=== PATIENT | male | born 1955 ===

== ENCOUNTER 2019-09-16 17:09 | Emergency (ER) | payer MEDICAID ==
--- NOTE | 2019-09-16 17:30 | EDM.PDOC ---
ED HPI GENERAL MEDICAL PROBLEM - General Stated Complaint: HIGH BP Time Seen by Provider: 09/16/19 17:25 Source of Information: Reports: Patient History Limitations: Reports: No Limitations - History of Present Illness INITIAL COMMENTS - FREE TEXT/NARRATIVE: 64-year-old male who reports that at approximately 1330 p.m. today, after coming back in from a walk in the yard while he was at intermediate, he developed left facial and left neck numbness that was shortly followed by left arm numbness and heaviness and then shortly after that he developed left leg heaviness and numbness. He also began to feel that he was having trouble making words and he noticed that his words seem to be somewhat slurred. The symptoms seemed to worsen over the next 15 minutes and they have been fairly stable since that time. He is incarcerated and he let the intermediate personnel no and he was transported to this facility ambulance. Upon arrival an EKG was performed and I was informed of the patient and a stroke activation was called. My initial evaluation of the patient showed him to have left facial droop, mild dysarthria, mild left arm weakness and mild left leg weakness. He was thinking normally and he had no vision problems. He was sent directly to CT scan for CT scan of his head. An EKG was performed and blood was drawn. The patient also tells me now that he has a headache which is frontally located and behind his eyes and he rates that as about 7-8/10. This headache has developed since the other symptoms developed. He had some mild nausea initially but that has resolved. He also tells me that on 09/12/2019, he had a verbal argument with someone and he was very upset and following this he developed a "sparkling and explosion of a headache all over his head"that was associated with left sided numbness and weakness and it lasted for approximately 30 minutes and then resolved completely. He did not tell anyone about this and he sought no medical help at that time. Later on that evening he was taking a shower and after the shower he had transient left-sided weakness that lasted for about 5 minutes and then resolved spontaneously and completely. Since then, he has had no further symptoms including no headache and no weakness until today at 3:30 PM. There are no other associated signs or symptoms. There are no other modifying factors. Onset: Today (3:30 PM) Duration: Other Location: Reports: Head, Upper Extremity, Left, Lower Extremity, Left Quality: Reports: Ache, Dull, Throbbing Severity: Moderate Improves with: Reports: None Worsens with: Reports: None Context: Reports: Other (As above) Associated Symptoms: Reports: Nausea/Vomiting, Weakness, Other (As above) Treatments [employer]: Reports: Other (see below) (Nothing) headache Pain Score (Numeric/FACES): 8 - Related Data Allergies Allergy/AdvReac Type Severity Reaction Status Date / Time No Known Allergies Allergy Verified 09/16/19 17:29 Home Meds: Home Meds NK [No Known Home Meds] 09/16/19 [History] Past Medical History - Past Health History Medical/Surgical History: Denies Medical/Surgical History (Patient denies any previous medical problems. He is on no medications. "I don't go see doctors". Surgical history as detailed below.) - Past Surgical History HEENT Surgical History: Reports: Other (See Below) (ORIF of facial fractures) Musculoskeletal Surgical History: Reports: ORIF (Of right clavicle, right ankle, left ankle) Other Surgical History Comment: Stellate ganglion removal Social & Family History - Tobacco Use Smoking Status *Q: Current Every Day Smoker (Has not smoked for the past week because he has been incarcerated.) - Alcohol Use Alcohol Use History: No Alcohol Use in Last Twelve Months: No Alcohol Use Comment: No alcohol use since 1995. 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 ED ROS GENERAL - Review of Systems Review Of Systems: See Below Constitutional: Reports: No Symptoms HEENT: Reports: Other (Facial numbness and tingling) Respiratory: Reports: No Symptoms Cardiovascular: Reports: Lightheadedness Endocrine: Reports: No Symptoms GI/Abdominal: Reports: Nausea : Reports: No Symptoms Musculoskeletal: Reports: No Symptoms Skin: Reports: No Symptoms Neurological: Reports: Dizziness, Headache, Numbness, Paresthesia, Tingling, Weakness, Other (Left sided symptoms as described above. Headache is frontal and retro-orbital orbital in location.) Hematologic/Lymphatic: Reports: No Symptoms Immunologic: Reports: No Symptoms ED EXAM, NEURO - Physical Exam Exam: See Below Exam Limited By: No Limitations General Appearance: Alert, WD/WN, Moderate Distress Eye Exam: Bilateral Eye: EOMI, Normal Inspection, PERRL Ears: Normal External Exam, Hearing Grossly Normal Nose: Normal Inspection, Normal Mucosa, No Blood Throat/Mouth: Normal Inspection, Normal Oropharynx, No Airway Compromise, Other (Poor dentition) Head Exam: Atraumatic, Normocephalic Neck: Normal Inspection, Supple, Non-Tender, Full Range of Motion Respiratory/Chest: No Respiratory Distress, Lungs Clear, Normal Breath Sounds, No Accessory Muscle Use, Chest Non-Tender Cardiovascular: Normal Peripheral Pulses, Regular Rate, Rhythm, No Murmur, JVD GI/Abdominal: Normal Bowel Sounds, Soft, Non-Tender, No Mass Neurological: Alert, Normal Mood/Affect, Normal Dorsiflexion, Normal Plantar Flexion, Oriented x 3, Other (Left facial droop over the lower half of the face. Dysarthria. Left arm weakness mild, there is mild drift. Left leg weakness, mild, there is mild drift.) Back Exam: Normal Inspection, Full Range of Motion Extremities: Normal Inspection, Normal Range of Motion, Non-Tender, No Pedal Edema, Normal Capillary Refill, Other (Radial, femoral and dorsalis pedis pulses are present and symmetric bilaterally.) Psychiatric: Normal Affect Skin Exam: Warm, Dry, Intact, Normal Color, No Rash EKG INTERPRETATION EKG Date: 09/16/19 Time: 17:19 Rhythm: NSR Rate (Beats/Min): 66 [place]: Normal P-Wave: Present QRS: Normal ST-T: Normal QT: Normal Comparison: NA - No Prior EKG (Normal EKG) Course - Vital Signs Last Recorded V/S: Last Vital Signs Temp 36.4 C 09/16/19 17:09 Pulse 69 09/16/19 17:09 Resp 21 H 09/16/19 17:09 BP 180/105 H 09/16/19 17:09 Pulse Ox 100 09/16/19 17:09 - Orders/Labs/Meds Orders: Active Orders 24 hr Category Date Time Status EKG Documentation Completion [RC] ASDIRECTED Care 09/16/19 17:49 Active Chest 1V Frontal [CR] Stat Exams 09/16/19 17:48 Taken Head wo Cont [CT] Stat Exams 09/16/19 17:30 Taken Sodium Chloride 0.9% [Normal Saline] 1,000 ml Med 09/16/19 18:00 Active IV ASDIRECTED Sodium Chloride 0.9% [Saline Flush] Med 09/16/19 17:48 Active 10 ml FLUSH ASDIRECTED PRN Peripheral IV Insertion Adult [OM.PC] Routine Oth 09/16/19 17:48 Ordered EKG 12 Lead [EK] Routine Ther 09/16/19 17:48 Ordered Medication Orders Sodium Chloride (Normal Saline) 1,000 mls @ 100 mls/hr IV ASDIRECTED ALEXANDRO Last Admin: 09/16/19 18:10 Dose: 100 mls/hr Documented by: KORI Sodium Chloride (Saline Flush) 10 ml FLUSH ASDIRECTED PRN PRN Reason: Keep Vein Open Last Admin: 09/16/19 18:11 Dose: 10 ml Documented by: KORI Labs: Laboratory Tests 09/16/19 09/16/19 09/16/19 Range/Units 17:45 17:45 17:45 WBC 10.0 (4.5-12.0) X10-3/uL RBC 4.78 (4.30-5.75) x10(6)uL Hgb 14.8 (13.5-17.8) g/dL Hct 45.4 (30.0-51.3) % MCV 95.0 (80-96) fL MCH 30.9 (27.7-33.6) pg MCHC 32.6 (32.2-35.4) g/dL RDW 12.7 (11.5-15.5) % Plt Count 378 H (125-369) X10(3)uL MPV 7.1 L (7.4-10.4) fL Neut % (Auto) 70.5 (46-82) % Lymph % (Auto) 19.7 (13-37) % [place] % (Auto) 7.6 (4-12) % Eos % (Auto) 1 (1.0-5.0) % Baso % (Auto) 1 (0-2) % Neut # (Auto) 7.0 (1.6-8.3) # Lymph # (Auto) 2.0 (0.6-5.0) # [place] # (Auto) 0.8 (0.0-1.3) # Eos # (Auto) 0.1 (0.0-0.8) # Baso # (Auto) 0.1 (0.0-0.2) # PT 9.8 (9.0-11.1) sec INR 0.90 L (1.00-1.24) APTT 23.5 L (24.4-33.2) SECONDS Sodium 138 (135-145) mmol/L Potassium 4.1 (3.5-5.3) mmol/L Chloride 105 (100-110) mmol/L Carbon Dioxide 28 (21-32) mmol/L BUN 12 (7-18) mg/dL Creatinine 1.1 (0.70-1.30) mg/dL Est Cr Clr Drug Dosing 69.02 mL/min Estimated GFR (MDRD) > 60 (>60) BUN/Creatinine Ratio 10.9 (9-20) Glucose 97 (80-116) mg/dL Calcium 8.3 L (8.6-10.2) mg/dL Magnesium 2.2 (1.8-2.5) mg/dL Total Bilirubin 0.3 (0.1-1.3) mg/dL AST 19 (5-25) IU/L ALT 36 (12-36) U/L Alkaline Phosphatase 78 (56-112) IU/L Total Protein 7.2 (6.0-8.0) g/dL Albumin 3.5 (3.2-4.6) g/dL Globulin 3.7 g/dL Albumin/Globulin Ratio 1.0 Urine Color (YELLOW) Urine Appearance (CLEAR) Urine pH (5.0-6.5) Ur Specific [place] (1.010-1.025) Urine Protein (NEGATIVE) mg/dL Urine Glucose (UA) (NORMAL) mg/dL Urine Ketones (NEGATIVE) mg/dL Urine Occult Blood (NEGATIVE) Urine Nitrite (NEGATIVE) Urine Bilirubin (NEGATIVE) Urine Urobilinogen (NEGATIVE) mg/dL Ur Leukocyte Esterase (NEGATIVE) Urine RBC (0-5) Urine WBC (0-5) Ur Squamous Epith Cells (NS,R,O) Urine Bacteria (NS) Urine Mucus (NS) 09/16/19 Range/Units 17:58 WBC (4.5-12.0) X10-3/uL RBC (4.30-5.75) x10(6)uL Hgb (13.5-17.8) g/dL Hct (30.0-51.3) % MCV (80-96) fL MCH (27.7-33.6) pg MCHC (32.2-35.4) g/dL RDW (11.5-15.5) % Plt Count (125-369) X10(3)uL MPV (7.4-10.4) fL Neut % (Auto) (46-82) % Lymph % (Auto) (13-37) % [place] % (Auto) (4-12) % Eos % (Auto) (1.0-5.0) % Baso % (Auto) (0-2) % Neut # (Auto) (1.6-8.3) # Lymph # (Auto) (0.6-5.0) # [place] # (Auto) (0.0-1.3) # Eos # (Auto) (0.0-0.8) # Baso # (Auto) (0.0-0.2) # PT (9.0-11.1) sec INR (1.00-1.24) APTT (24.4-33.2) SECONDS Sodium (135-145) mmol/L Potassium (3.5-5.3) mmol/L Chloride (100-110) mmol/L Carbon Dioxide (21-32) mmol/L BUN (7-18) mg/dL Creatinine (0.70-1.30) mg/dL Est Cr Clr Drug Dosing mL/min Estimated GFR (MDRD) (>60) BUN/Creatinine Ratio (9-20) Glucose (80-116) mg/dL Calcium (8.6-10.2) mg/dL Magnesium (1.8-2.5) mg/dL Total Bilirubin (0.1-1.3) mg/dL AST (5-25) IU/L ALT (12-36) U/L Alkaline Phosphatase (56-112) IU/L Total Protein (6.0-8.0) g/dL Albumin (3.2-4.6) g/dL Globulin g/dL Albumin/Globulin Ratio Urine Color Yellow (YELLOW) Urine Appearance Clear (CLEAR) Urine pH 5.0 (5.0-6.5) Ur Specific [place] 1.020 (1.010-1.025) Urine Protein Negative (NEGATIVE) mg/dL Urine Glucose (UA) Normal (NORMAL) mg/dL Urine Ketones Negative (NEGATIVE) mg/dL Urine Occult Blood Negative (NEGATIVE) Urine Nitrite Negative (NEGATIVE) Urine Bilirubin Negative (NEGATIVE) Urine Urobilinogen Normal (NEGATIVE) mg/dL Ur Leukocyte Esterase Negative (NEGATIVE) Urine RBC 0-5 (0-5) Urine WBC 0-5 (0-5) Ur Squamous Epith Cells Occasional (NS,R,O) Urine Bacteria Few H (NS) Urine Mucus Few H (NS) Meds: Medications Generic Name Dose Route Start Last Admin Trade Name Freq PRN Reason Stop Dose Admin Sodium Chloride 1,000 mls @ 100 mls/hr 09/16/19 18:00 09/16/19 18:10 Normal Saline IV 100 mls/hr ASDIRECTED ALEXANDRO Administration Sodium Chloride 10 ml 09/16/19 17:48 09/16/19 18:11 Saline Flush FLUSH 10 ml ASDIRECTED PRN Administration Keep Vein Open Discontinued Medications Generic Name Dose Route Start Last Admin Trade Name Freq PRN Reason Stop Dose Admin Alteplase, Recombinant 6.3 mg 09/16/19 18:27 Activase IVPUSH 09/16/19 18:28 .BOLUS ONE Alteplase, Recombinant 57.1 mg 0 mls @ 0 mls/hr 09/16/19 18:53 / Premix IV 09/16/19 18:54 .INFUSION ONE - Radiology Interpretation Free Text/Narrative:: Portable chest x-ray shows hyperinflation but otherwise was normal. CT scan of head without contrast was read as no acute intracranial abnormality by the radiologist. - Re-Assessments/Exams Free Text/Narrative Re-Assessment/Exam: 09/16/19 17:50: Patient with left-sided weakness. He has an NIH stroke scale score of 6 at this point. I am awaiting the official read of the CT of the head but my read I don't see any evidence of bleeding. I feel that he is a candidate for TPA if the head CT scan is read as negative for bleeding. He has no contraindications for TPA at this point. I discussed all this with the patient and have outlined the risk and the benefits associated with TPA therapy. After hearing these risk and benefits, he asked me to proceed with this therapy if indicated. The RN, Vasu, witnessed this verbal consent to proceed with thrombolytic therapy if indicated. I will also call and discuss the patient's case with the stroke neurologist at [facility] in [place]. I had discussed it with the patient and he would want me to discuss this case with the doctors at [facility] in [place]. The transfer to [facility] in [place] because he will need stroke neurologist and possibly interventional radiology which is not available at [facility]. 09/16/19 18:10: The CT of the patient's head showed no evidence of bleeding and was read as no acute intracranial abnormality by the radiologist. I have just discussed the patient's case with Dr. Guardado, stroke neurologist at [facility] in [place], he feels that the patient is a candidate for thrombolytics. He recommends giving TPA to the patient. He also recommends that the patient be transferred to [facility] in [place] for ongoing cares. He has agreed to accept the patient in [facility]. Therefore, the patient will be given TPA as per protocol for treatment of acute stroke and he will be transferred via [facility] ambulance service to [facility] for ongoing cares. I have discussed this all with the patient again and he is in agreement with this treatment in transfer. 09/16/19 18:30: The patient received the initial bolus of thrombolytic therapy at 6:27 PM. The remaining TPA is infusing over the next hour. The patient remains neurologically stable with no change in his neurologic exam at this point. He is awake, alert and appropriate. His blood pressure is 170/90. 09/16/19 18:49: EMS is now transporting the patient. He remains neurologically stable at this point with no acute changes in his exam thus far. He continues to be awake and alert and conversing. He still has mild dysarthria. I did discuss the patient's case with his fiance at his request and answered her questions. Departure - Departure Time of Disposition: 18:49 Disposition: DC/Tfer to Acute Hospital 02 Condition: Critical Clinical Impression: Acute CVA (cerebrovascular accident), Elevated blood pressure reading - Discharge Information Sepsis Event Note (ED) - Focused Exam Vital Signs: Vital Signs Temp Pulse Resp BP Pulse Ox 09/16/19 17:09 36.4 C 69 21 H 180/105 H 100 - My Orders Last 24 Hours: My Active Orders 09/16/19 17:30 Head wo Cont [CT] Stat 07/23/20 17:48 Chest 1V Frontal [CR] Stat Sodium Chloride 0.9% [Saline Flush] 10 ml FLUSH ASDIRECTED PRN Peripheral IV Insertion Adult [OM.PC] Routine EKG 12 Lead [EK] Routine 09/16/19 17:49 EKG Documentation Completion [RC] ASDIRECTED 09/16/19 18:00 Sodium Chloride 0.9% [Normal Saline] 1,000 ml IV ASDIRECTED - Assessment/Plan Last 24 Hours: My Active Orders 09/16/19 17:30 Head wo Cont [CT] Stat 09/16/19 17:48 Chest 1V Frontal [CR] Stat Sodium Chloride 0.9% [Saline Flush] 10 ml FLUSH ASDIRECTED PRN Peripheral IV Insertion Adult [OM.PC] Routine EKG 12 Lead [EK] Routine 09/16/19 17:49 EKG Documentation Completion [RC] ASDIRECTED 09/16/19 18:00 Sodium Chloride 0.9% [Normal Saline] 1,000 ml IV ASDIRECTED
[2019-09-16] MEDS ORDERED: Sodium Chloride 0.9% 10 ML Syringe FLUSH PRN (17:48)
[2019-09-16] MEDS ORDERED: Sodium Chloride 0.9% 1,000 ML IV SCH (18:00)
[2019-09-16] MEDS ORDERED: ALTEPLASE IV ONE (18:53)
== END 2019-09-16 18:49 ==
LOC: FB.ED 17:09
DX: I62.9 Nontraumatic intracranial hemorrhage, unspecified (principal); R03.0 Elevated blood-pressure reading, without diagnosis of hypertension; R42 Dizziness and giddiness; F17.200 Nicotine dependence, unspecified, uncomplicated
CPT/HCPCS: 36415; 37195; 70450; 71045; 80053; 81001; 83735; 85025; 85610; 85730; 93005; 96360; 99291; 99292; J2997; J7030